=== PATIENT | female | born 1955 ===

== ENCOUNTER 2018-04-02 00:50 | Emergency (ER) | payer OTHER ==
[2018-04-02 01:01] VITALS: BMI 30.9
--- NOTE | 2018-04-02 01:10 | ED PDOC ---
Arrival/HPI - General Chief Complaint: Headache Time Seen by Provider: 04/02/18 00:59 Historian: Patient - History of Present Illness Narrative History of Present Illness (Text): 04/02/18 01:06 62 year old female, whose past medical history includes hypertension, diabetes, hypercholesterolemia, Herniorrhaphy, and cholecystectomy, presents to the emergency department with left-sided head pain since yesterday. Patient states that the pain became very severe over the last 5 hours. Patient has had similar symptoms in the past. Patient denies any fever, chills, dizziness, chest pain, shortness of breath, cough, abdominal pain, nausea, vomiting, diarrhea, back pain, neck pain, urinary/bowel changes, or any other complaint. Time/Duration: 24 hours Symptom Onset: Gradual Symptom Course: Unchanged Quality: Pressure Context: Home Past Medical History - Provider Review Nursing Documentation Reviewed: Yes - Infectious Disease Hx of Infectious Diseases: None - Reproductive Menopause: Yes - Cardiac Hx Hypertension: Yes - Pulmonary Hx Respiratory Disorders: No - Neurological Hx Neurological Disorder: No - HEENT Hx HEENT Disorder: No - Renal Hx Renal Disorder: No - Endocrine/Metabolic Hx Diabetes Mellitus Type 2: Yes - Hematological/Oncological Hx Blood Disorders: No - Integumentary Hx Dermatological Disorder: No - Musculoskeletal/Rheumatological Hx Musculoskeletal Disorders: Yes (SHOULDER PAIN) Hx Degenerative Joint Disease: Yes Hx Falls: No Hx Osteoarthritis: Yes - Gastrointestinal Hx Gall Bladder Disease: Yes - Genitourinary/Gynecological Hx Genitourinary Disorders: No - Psychiatric Hx Psychophysiologic Disorder: No Hx Substance Use: No - Surgical History Hx Cholecystectomy: Yes - Anesthesia Hx Anesthesia: Yes Hx Anesthesia Reactions: No Hx Malignant Hyperthermia: No Family/Social History - Physician Review Nursing Documentation Reviewed: Yes Family/Social History: No Known Family HX Smoking Status: Never Smoked Hx Alcohol Use: No Hx Substance Use: No Allergies/Home Meds Allergies/Adverse Reactions: Allergies No Known Allergies Allergy (Verified 04/02/18 01:01) Home Medications: Home Meds Medication Instructions Recorded Confirmed Atenolol [Tenormin] 25 mg PO DAILY 05/15/17 04/02/18 Pantoprazole [Protonix] 40 mg PO DAILY 05/15/17 04/02/18 Simvastatin 20 mg PO HS 05/15/17 04/02/18 metFORMIN [glucOPHAGE] 500 mg PO BID 05/15/17 04/02/18 Review of Systems - Physician Review All systems were reviewed & negative as marked: Yes - Review of Systems Constitutional: Normal. absent: Fevers, Night Sweats Eyes: Normal ENT: Normal Respiratory: Normal. absent: SOB, Cough Cardiovascular: Normal. absent: Chest Pain Gastrointestinal: Normal. absent: Abdominal Pain, Diarrhea, Nausea, Vomiting Genitourinary Female: Normal. absent: Urine Output Changes Musculoskeletal: Normal. absent: Back Pain, Neck Pain Skin: Normal Neurological: Headache (localized to left). absent: Dizziness Endocrine: Normal Hemo/Lymphatic: Normal Psychiatric: Normal Physical Exam Vital Signs Reviewed: Yes Vital Signs Temp Pulse Resp BP Pulse Ox 04/02/18 04:03 98.0 F 68 17 148/72 99 04/02/18 03:06 57 L 17 158/61 H 98 04/02/18 01:01 98 F 61 20 166/99 H 99 Temperature: Afebrile Blood Pressure: Hypertensive Pulse: Regular Respiratory Rate: Normal Appearance: Positive for: Well-Appearing, Non-Toxic, Comfortable Pain Distress: None Mental Status: Positive for: Alert and Oriented X 3 - Systems Exam Head: Present: Atraumatic, Normocephalic Pupils: Present: PERRL Extroacular Muscles: Present: EOMI Conjunctiva: Present: Normal Mouth: Present: Moist Mucous Membranes Neck: Present: Normal Range of Motion Respiratory/Chest: Present: Clear to Auscultation, Good Air Exchange. No: Respiratory Distress, Accessory Muscle Use Cardiovascular: Present: Regular Rate and Rhythm, Normal S1, S2. No: Murmurs Abdomen: No: Tenderness, Distention, Peritoneal Signs Back: Present: Normal Inspection Upper Extremity: Present: Normal Inspection. No: Cyanosis, Edema Lower Extremity: Present: Normal Inspection. No: Edema Neurological: Present: GCS=15, CN II-XII Intact, Speech Normal Skin: Present: Warm, Dry, Normal Color. No: Rashes Psychiatric: Present: Alert, Oriented x 3, Normal Insight, Normal Concentration Medical Decision Making ED Course and Treatment: 04/02/18 01:14 Impression: 62 year old female presents with left-sided headache. Plan: -- Reglan -- CT head -- Reassess and disposition Prior Visits: Notes and results from previous visits were reviewed. Progress Notes: 04/02/18 03:04 CT Head Without Intravenous Contrast EXAM DATE/TIME: 04/02/2018 1:06 AM CLINICAL HISTORY: 62 years old, female; Pain; Headache; Headache not specified; Additional info: GUERRIER TECHNIQUE: Axial computed tomography images of the head/brain without intravenous contrast. All CT scans at this facility use at least one of these dose optimization techniques: automated exposure control; mA and/or kV adjustment per patient size (includes targeted exams where dose is matched to clinical indication); or iterative reconstruction. COMPARISON: No relevant prior studies available. FINDINGS: Brain:No acute intra or extra-axial hemorrhage. No mass or midline shift. Clear sinuses. No calvarial fracture. IMPRESSION: No intracranial hemorrhage - Lab Interpretations Lab Results: 04/02/18 01:09 04/02/18 01:09 Lab Results 04/02/18 01:09: Sodium 141, Potassium 3.8, Chloride 104, Carbon Dioxide 25, Anion Gap 15, BUN 18, Creatinine 0.9, Est GFR ( Amer) > 60, Est GFR (Non- Af Amer) > 60, Random Glucose 192 H, Calcium 8.9, Magnesium 1.6 L, Total Bilirubin 0.3, AST 22, ALT 27, Alkaline Phosphatase 60, Lactate Dehydrogenase 587, Total Creatine Kinase 110, Troponin I 0.02, Total Protein 7.5, Albumin 4.4 , Globulin 3.1, Albumin/Globulin Ratio 1.4 04/02/18 01:09: WBC 5.8, RBC 3.91, Hgb 11.3 L, Hct 33.3 L, MCV 85.2, MCH 28.9, MCHC 33.9, RDW 13.7, Plt Count 192, MPV 11.3 H, Gran % 56.2, Lymph % (Auto) 36.4 H, Aiken % (Auto) 6.0, Eos % (Auto) 1.2 L, Baso % (Auto) 0.2, Gran # 3.25, Lymph # (Auto) 2.1, Aiken # (Auto) 0.4, Eos # (Auto) 0.1, Baso # (Auto) 0.01 - RAD Interpretation Radiology Orders: 04/02/18 01:06 HEAD W/O CONTRAST [CT] Stat - EKG Interpretation EKG Interpretation (Text): 04/02/18 06:25 sinus rate 59 nssts changes - Medication Orders Current Medication Orders: Discontinued Medications Ketorolac Tromethamine (Toradol) 15 mg IVP ONCE ONE Stop: 04/02/18 02:20 Last Admin: 04/02/18 02:58 Dose: 15 mg MAR Pain Assessment Document 04/02/18 02:58 IT (Rec: 04/02/18 02:58 IT [facility] [id number]) Pain Reassessment Is this a pain reassessment? No Sleep Is patient sleeping during reassessment? No Presence of Pain Presence of Pain Yes Pain Scale Used Pain Scale Used Numeric Location Left, Right or Bilateral Bilateral IVP Administration Document 04/02/18 02:58 IT (Rec: 04/02/18 02:58 IT [facility] [id number]) Charges for Administration # of IVP Administrations 1 Metoclopramide HCl (Reglan) 10 mg IVP ONCE ONE Stop: 04/02/18 01:07 Last Admin: 04/02/18 01:23 Dose: 10 mg IVP Administration Document 04/02/18 01:23 IT (Rec: 04/02/18 01:23 IT [facility] [id number]) Charges for Administration # of IVP Administrations 1 - Scribe Statement The provider has reviewed the documentation as recorded by the Blue Renee Provider Scribe Attestation: All medical record entries made by the Scribe were at my direction and personally dictated by me. I have reviewed the chart and agree that the record accurately reflects my personal performance of the history, physical exam, medical decision making, and the department course for this patient. I have also personally directed, reviewed, and agree with the discharge instructions and disposition. Disposition/Present on Arrival - Present on Arrival Any Indicators Present on Arrival: No History of DVT/PE: No History of Uncontrolled Diabetes: No Urinary Catheter: No History of Decub. Ulcer: No History Surgical Site Infection Following: None - Disposition Have Diagnosis and Disposition been Completed?: Yes Diagnosis: Headache Disposition: HOME/ ROUTINE Disposition Time: 05:00 Condition: IMPROVED Discharge Instructions (ExitCare): Tension Headache, Headache, Adult Prescriptions: Acetaminophen/Butalbital/Caf [Fioricet] 1 tab PO QID PRN #8 tab PRN Reason: Headache Referrals: Ray Cheng MD, PhD [Primary Care Provider] - Follow up with primary Forms: [facility] 911 (Bengali)
[2018-04-02 01:51] LABS: ALB/GLOB RATIO 1.4 (1.1-1.8); ALBUMIN 4.4 g/dL (3.0-4.8); CALCIUM 8.9 mg/dL (8.4-10.5); GFR NON-AFRICAN AMERICAN > 60
[2018-04-02 01:53] LABS: BASO # 0.01 K/mm3 (0.0-2.0); BASO % 0.2 % (0.0-3.0); EOS # 0.1 (0.0-0.7); EOS % 1.2 % (1.5-5.0); GRAN # 3.25 (1.4-6.5); GRAN % 56.2 % (50.0-68.0); HEMOGLOBIN 11.3 g/dL (12.0-16.0); LYMPH # 2.1 (1.2-3.4); LYMPH % 36.4 % (22.0-35.0); MEAN CELL VOLUME 85.2 fl (80.0-105.0); MEAN CORPUSCULAR HEMOGLOBIN 28.9 pg (25.0-35.0); MEAN CORPUSCULAR HGB CONC 33.9 g/dl (31.0-37.0); MEAN PLATELET VOLUME 11.3 fl (7.0-11.0); MONO # 0.4 (0.1-0.6); RBC 3.91 10^6/uL (3.5-6.1); RED CELL DISTRIBUTION WIDTH 13.7 % (11.5-14.5); WHITE BLOOD COUNT 5.8 10^3/ul (4.5-11.0)
[2018-04-02 02:02] LABS: TROPONIN I 0.02 ng/mL
[2018-04-02 02:56] LABS: ALT/SGPT 27 U/L (7-56); AST/SGOT 22 U/L (14-36); BLOOD UREA NITROGEN 18 mg/dL (7-21)
[2018-04-02 03:07] VITALS: RESP 17
[2018-04-02 04:03] VITALS: BP 148/72; PULSE 68; TEMP 98; O2SAT 99
--- NOTE | 2018-04-02 09:21 | CT ---
Date of service: 04/02/2018 PROCEDURE: CT HEAD WITHOUT CONTRAST. HISTORY: ayala COMPARISON: None available. TECHNIQUE: Axial computed tomography images were obtained through the head/brain without intravenous contrast. Radiation dose: Total exam DLP = 684 mGy-cm. This CT exam was performed using one or more of the following dose reduction techniques: Automated exposure control, adjustment of the mA and/or kV according to patient size, and/or use of iterative reconstruction technique. FINDINGS: HEMORRHAGE: No intracranial hemorrhage. BRAIN: No mass effect or edema. No atrophy or chronic microvascular ischemic changes. VENTRICLES: Unremarkable. No hydrocephalus. CALVARIUM: Unremarkable. PARANASAL SINUSES: Unremarkable as visualized. No significant inflammatory changes. MASTOID AIR CELLS: Unremarkable as visualized. No inflammatory changes. OTHER FINDINGS: The report concurs with the preliminary [facility] report IMPRESSION: No acute findings
--- NOTE | 2018-04-02 09:41 | CARD ---
APPROVED REPORT Date of service: 04/02/2018 EKG Measurement Heart [id number] <Conclusion> Sinus bradycardia with 1st degree AV block Otherwise normal ECG
== END 2018-04-02 04:03 | disposition home or self-care (01) ==
LOC: ED 00:50
DX: R51 Headache (principal); E11.9 Type 2 diabetes mellitus without complications; E78.00 Pure hypercholesterolemia, unspecified; I10 Essential (primary) hypertension
CPT/HCPCS: 70450; 80053; 82550; 83615; 83735; 84484; 85025; 93005; 96374; 96375; 99285; J1885; J2765

== ENCOUNTER 2018-07-14 19:19 | Observation (INO) | payer OTHER ==
[2018-07-14 19:27] VITALS: BMI 31.4
--- NOTE | 2018-07-14 19:34 | ED PDOC ---
Arrival/HPI - General Chief Complaint: Cough, Cold, Congestion Historian: Patient - History of Present Illness Narrative History of Present Illness (Text): 07/14/18 19:32 62 y/o female, pmh including htn/hld/dm, nkda, c/o runny nose and coughing x 2 weeks. Pt. has been having runny nose, associated with productive coughing and chest pain with occasional shortness of breath, no night sweat, no weight loss, no fever or chills, worsened for the past few days, no recent traveling, no palpitation, no night sweat, no other medical or psychological complaints. Past Medical History - Provider Review Nursing Documentation Reviewed: Yes - Infectious Disease Hx of Infectious Diseases: None - Cardiac Hx Hypertension: Yes - Pulmonary Hx Respiratory Disorders: No - Neurological Hx Neurological Disorder: No - HEENT Hx HEENT Disorder: No - Renal Hx Renal Disorder: No - Endocrine/Metabolic Hx Diabetes Mellitus Type 2: Yes - Hematological/Oncological Hx Blood Disorders: No - Integumentary Hx Dermatological Disorder: No - Musculoskeletal/Rheumatological Hx Musculoskeletal Disorders: Yes (SHOULDER PAIN) Hx Degenerative Joint Disease: Yes Hx Falls: No Hx Osteoarthritis: Yes - Gastrointestinal Hx Gall Bladder Disease: Yes - Genitourinary/Gynecological Hx Genitourinary Disorders: No - Psychiatric Hx Psychophysiologic Disorder: No Hx Substance Use: No - Surgical History Hx Cholecystectomy: Yes - Anesthesia Hx Anesthesia: Yes Hx Anesthesia Reactions: No Hx Malignant Hyperthermia: No Family/Social History - Physician Review Nursing Documentation Reviewed: Yes Family/Social History: Unknown Family HX Smoking Status: Never Smoked Hx Alcohol Use: No Hx Substance Use: No Allergies/Home Meds Allergies/Adverse Reactions: Allergies No Known Allergies Allergy (Verified 04/02/18 01:01) Home Medications: Home Meds Medication Instructions Recorded Confirmed Atenolol [Tenormin] 25 mg PO DAILY 05/15/17 04/02/18 Pantoprazole [Protonix] 40 mg PO DAILY 05/15/17 04/02/18 Simvastatin 20 mg PO HS 05/15/17 04/02/18 metFORMIN [glucOPHAGE] 500 mg PO BID 05/15/17 04/02/18 Review of Systems - Review of Systems Constitutional: absent: Fatigue, Fevers Eyes: absent: Vision Changes ENT: Rhinorrhea. absent: Hearing Changes Respiratory: SOB, Cough, Sputum. absent: Wheezing Cardiovascular: Chest Pain Gastrointestinal: absent: Abdominal Pain, Diarrhea, Nausea, Vomiting Musculoskeletal: absent: Arthralgias, Back Pain Skin: absent: Rash, Pruritis Neurological: absent: Headache Psychiatric: absent: Anxiety, Depression, Suicidal Ideation Physical Exam Vital Signs Reviewed: Yes Temperature: Afebrile Blood Pressure: Hypertensive Pulse: Regular Respiratory Rate: Normal Appearance: Positive for: Well-Appearing, Non-Toxic, Comfortable Pain Distress: Mild Mental Status: Positive for: Alert and Oriented X 3 - Systems Exam Head: Present: Atraumatic, Normocephalic Pupils: Present: PERRL Extroacular Muscles: Present: EOMI Conjunctiva: Present: Normal Mouth: Present: Moist Mucous Membranes Pharnyx: No: ERYTHEMA, EXUDATE, TONSILS ENLARGED Nose (External): Present: Atraumatic. No: Abrasion, Contusion, Laceration Nose (Internal): Present: Normal Inspection, No Active Bleeding, Rhinorrhea. No: Septal Hematoma, Epistaxis Neck: Present: Normal Range of Motion Respiratory/Chest: Present: Wheezes, Rales, Rhonchi. No: Respiratory Distress, Accessory Muscle Use, Decreased Breath Sounds, Retracting, Tachypneic, Tender to Palpation Cardiovascular: Present: Regular Rate and Rhythm, Normal S1, S2, Other (no pedal edema). No: Murmurs Abdomen: No: Tenderness, Distention, Peritoneal Signs, Rebound, Guarding Back: Present: Normal Inspection Upper Extremity: Present: Normal Inspection, Normal ROM, Neurovascularly Intact, Capillary Refill < 2s. No: Cyanosis, Edema, Deformity Lower Extremity: Present: Normal Inspection, Normal ROM, Neurovascularly Intact, Capillary Refill < 2 s. No: Edema, Deformity Neurological: Present: GCS=15, CN II-XII Intact, Speech Normal, Motor Func Grossly Intact, Gait Normal, Memory Normal Skin: Present: Warm, Dry, Normal Color. No: Rashes Psychiatric: Present: Alert, Oriented x 3, Normal Insight, Normal Concentration Medical Decision Making ED Course and Treatment: 07/14/18 19:35 -labs -cxr -observe and reassess 07/14/18 21:12 -Chest xray No evidence of acute pulmonary pathology.Left humeral prosthesis -Labs show no acute findings except wbc 3.9 -BNP 454 (very mildly elevated), not appear to be CHF -Lactic acid 2.5, will repeat -Mg 1.4 (mgsulfate 2gm ordered). -Pt. has excessive cough, CTA ordered 07/14/18 22:45 -CTA: A pulmonary embolism is not identified. Respiratory motion limits evaluation. No infiltrate or pleural effusion. Left shoulder prosthesis. -Pt. admits chest pain, Trop ordered and she would need trending to r/o ACS, duoneb/solumedrol and aspirin ordered -I discussed all labs and radiology results discussed with the family and the patient, agreed to be admitted for observation. 07/14/18 23:14 -Paging the medicine oncall Dr. Hammond. 07/14/18 23:22 -Oxygen ordered -Trop: is negative first set -EKG: Sinus Bradycardia @ 50 BPM, no St elevation or depression, no T wave inversion. -Lactic acidosis can be cause by metformin and ischemia which she has no fever and no elevation of wbc, non tachy/tachypnea, unlikely sepsis but she would need work up so she would need to be admitted. -I spoke to Dr. Hammond about this case, request to have Dr. Suarez and Dr. Schroeder on routine consult, request me to order troponin set until tomorrow morning and she would follow up these results and continue trending. - RAD Interpretation Radiology Orders: CT Chest: EXAM: CTA Chest with Intravenous Contrast for Pulmonary Embolism CLINICAL HISTORY: SOB AND COUGH TECHNIQUE: Axial CTA images of the chest with intravenous contrast using a pulmonary embolism protocol. Reconstructed images were created and reviewed. 443.00 mGy-cm CONTRAST: With; OMNI 350 100 ml was administered without incident. COMPARISON: None provided. FINDINGS: PULMONARY ARTERIES A pulmonary embolism is not identified. AORTA There is no evidence for aneurysm or dissection of the thoracic aorta. LUNGS No infiltrate or pleural effusion. PLEURAL SPACES No pneumothorax evident. No pleural effusions. HEART Normal heart size. No significant pericardial effusion. LYMPH NODES No lymphadenopathy is evident. BONES Left shoulder prosthesis. UPPER ABDOMEN Images of the upper abdomen are unremarkable. MISCELLANEOUS: Respiratory motion limits evaluation. IMPRESSION: 1. A pulmonary embolism is not identified. 2. Respiratory motion limits evaluation. 3. No infiltrate or pleural effusion. 4. Left shoulder prosthesis. Electronically signed on Jul 14, 2018 10:33:31 PM EST by: Joss Scott M.D., Certified by [facility] Chest xray: CLINICAL HISTORY: Cough. COMMENTS: PA and lateral views of chest reveal no evidence of active pleural or pulmonary parenchymal abnormality. The cardiac silhouette is within limits of normal. The mediastinum and pulmonary vessels appear normal. The bony structures are unremarkable. IMPRESSION: No evidence of acute pulmonary pathology.Left humeral prosthesis Thank you for your kind referral of this patient. Electronically signed on Jul 14, 2018 9:03:41 PM EST by: LISHA SHAH MD, CERTIFIED BY [facility] Supervisor Cellars: Radiologist - PA / [employer] / Resident Statement / has reviewed & agrees with the documentation as recorded. Disposition/Present on Arrival - Present on Arrival Any Indicators Present on Arrival: No History of DVT/PE: No History of Uncontrolled Diabetes: No Urinary Catheter: No History of Decub. Ulcer: No History Surgical Site Infection Following: None - Disposition Have Diagnosis and Disposition been Completed?: Yes Diagnosis: Hypomagnesemia, Chest pain, Shortness of breath, Lactic acidosis Disposition: HOSPITALIZED Disposition Time: 22:55 Patient Plan: Admission, Observation, Telemetry Patient Problems: Current Active Problems Problem Status Onset Chest pain Acute Hypomagnesemia Acute Lactic acidosis Acute Shortness of breath Acute Condition: GUARDED
[2018-07-14 20:05] LABS: BASO # 0.01 K/mm3 (0.0-2.0); BASO % 0.3 % (0.0-3.0); EOS % 0.8 % (1.5-5.0); GRAN # 1.8 (1.4-6.5); GRAN % 46.1 % (50.0-68.0); LYMPH # 1.6 (1.2-3.4); LYMPH % 41.5 % (22.0-35.0); MEAN CELL VOLUME 85.3 fl (80.0-105.0); MEAN CORPUSCULAR HEMOGLOBIN 28.9 pg (25.0-35.0); MEAN CORPUSCULAR HGB CONC 33.8 g/dl (31.0-37.0); MEAN PLATELET VOLUME 10.8 fl (7.0-11.0); MONO # 0.4 (0.1-0.6); MONO % 11.3 % (1.0-6.0); RBC 3.81 10^6/uL (3.5-6.1); RED CELL DISTRIBUTION WIDTH 13.6 % (11.5-14.5); WHITE BLOOD COUNT 3.9 10^3/uL (4.5-11.0)
[2018-07-14 20:06] LABS: VENOUS BLOOD GAS BASE EXCESS 0.1 mmol/L (0.0-2.0); VENOUS BLOOD GAS PO2 64 mm/Hg (30-55); VENOUS BLOOD PH 7.41 (7.32-7.43)
[2018-07-14 20:18] LABS: ALB/GLOB RATIO 1.4 (1.1-1.8); ALBUMIN 4.2 g/dL (3.0-4.8); ALT/SGPT 26 U/L (7-56); AST/SGOT 27 U/L (14-36); BLOOD UREA NITROGEN 12 mg/dL (7-21); CALCIUM 8.7 mg/dL (8.4-10.5); GFR NON-AFRICAN AMERICAN > 60
[2018-07-14 20:25] LABS: B-TYPE NATRIURETIC PEPTIDE 454 pg/mL (0-450)
[2018-07-14] MEDS ORDERED: Magnesium Sulfate 2 gm/50 ml 2 GM/50 ML BAG IVPB ONE (20:44)
[2018-07-14] MEDS ORDERED: Iohexol 350 MG/100 ML VIAL ONE (21:18)
[2018-07-14] MEDS ORDERED: Albuterol-Ipratrop 3 mg / 0.5 (3 ml) UD IH STA ×2 (22:44→22:51)
[2018-07-15 00:46] LABS: VENOUS BLOOD GAS BASE EXCESS -0.3 mmol/L (0.0-2.0); VENOUS BLOOD GAS PO2 32 mm/Hg (30-55); VENOUS BLOOD PH 7.36 (7.32-7.43)
[2018-07-15] MEDS ORDERED: Dextrose 50% SYRINGE Inj (50 ml) IV PRN (08:16)
[2018-07-15] MEDS ORDERED: Insulin Regular 1 UNITS/0.01 ML ML SC STA (08:40)
--- NOTE | 2018-07-15 09:13 | RAD ---
Date of service: 07/14/2018 HISTORY: cough x 2 weeks COMPARISON: No prior. TECHNIQUE: Chest PA and lateral FINDINGS: LUNGS: No active pulmonary disease. PLEURA: No significant pleural effusion identified. No pneumothorax apparent. CARDIOVASCULAR: No aortic atherosclerotic calcification present. Normal cardiac size. No pulmonary vascular congestion. OSSEOUS STRUCTURES: No significant abnormalities. VISUALIZED UPPER ABDOMEN: Normal. OTHER FINDINGS: None. IMPRESSION: No active disease.
--- NOTE | 2018-07-15 09:25 | CT ---
Date of service: 07/14/2018 PROCEDURE: CT Chest with contrast (Pulmonary Angiogram) HISTORY: Cough, shortness of breath. COMPARISON: None available. TECHNIQUE: Axial computed tomography images were obtained of the chest in the pulmonary arterial phase of enhancement. Coronal and sagittal reformatted images were created and reviewed. Intravenous contrast dose: 100 cc Omnipaque 350. Mean Hounsfield value in the main pulmonary artery: 389.05 Radiation dose: Total exam DLP = 443.13 mGy-cm. This CT exam was performed using one or more of the following dose reduction techniques: Automated exposure control, adjustment of the mA and/or kV according to patient size, and/or use of iterative reconstruction technique. FINDINGS: PULMONARY ARTERIES: Unremarkable. No pulmonary embolism. AORTA: No acute findings. No thoracic aortic aneurysm. No atherosclerotic calcification or mural plaque present. LUNGS: Unremarkable. No nodule, mass or pulmonary consolidation. PLEURAL SPACES: Unremarkable. No effusion or pneumothorax. HEART: Unremarkable. No cardiomegaly. No significant pericardial effusion. LYMPH NODES: No lymphadenopathy. BONES, CHEST WALL: Unremarkable. No fracture or destructive lesion OTHER FINDINGS: Unremarkable. IMPRESSION: Unremarkable CT pulmonary angiogram. No pulmonary embolus. No acute findings related to/ accounting for the clinical presentation. Additional benign and/or incidental findings described above. Concordant results (preliminary interpretation) provided by [employer]. Procedure Completed: 21:50. Preliminary Report: Dictated and Authenticated: 22:33. Final Interpretation: 09:21. July 15, 2018
--- NOTE | 2018-07-15 09:31 | CON ---
DATE: 07/15/2018 CARDIOLOGY CONSULTATION REASON FOR CONSULTATION: Cardiac evaluation, cold, cough, congestion and chest pain. BRIEF CLINICAL HISTORY: A 62-year-old female with past medical history significant for hypertension more than 30 years, diabetes 4 years, hyperlipidemia complained of running nose, cough for 2 weeks and just started hurting her coughing. Denies any chest pain or dyspnea on exertion, chest pain prior to this condition or cold episode. PAST MEDICAL HISTORY: The past history significant for hypertension more than 25 years, diabetes 4 years and hyperlipidemia. SOCIAL HISTORY: Denies any smoking. Denies any history of alcohol abuse. PAST SURGICAL HISTORY: Significant for left shoulder surgery 2 years ago. CURRENT MEDICATIONS: The patient is taking metformin 500 mg p.o. b.i.d., simvastatin 200 mg daily, Protonix 40 mg daily, atenolol 25 mg daily, acetaminophen and butalbital that is combination of Fioricet 1 tablet every p.r.n. ALLERGIES: NO KNOWN DRUG ALLERGY. REVIEW OF SYSTEMS: As per HPI. PHYSICAL EXAMINATION: As follows, GENERAL: Height of the patient is 5 feet 4 inches. Weight of the patient 184 pounds. Body mass index 31.6 kg/m2. VITAL SIGNS: Temperature afebrile, heart rate 66 and blood pressure 142/82. HEENT: PERRLA. Extraocular muscles intact. NECK: Supple. No carotid bruit or thyromegaly CHEST: Clear to auscultation. HEART: S1 and S2 regular. ABDOMEN: Soft. EXTREMITIES: Clubbing and cyanosis negative. LABORATORY DATA: EKG shows normal sinus rhythm. No acute ST-T changes noted. Blood workup, WBC 3.9, hemoglobin 11, hematocrit 32.5 and platelet count 180. Chemistry shows s odium 130, potassium 3.6, chloride 105, carbon dioxide 25, anion gap of 13, BUN 12, creatinine 0.7, troponin 0.01 and the repeat troponin 0.03. BNP 4554. IMPRESSION AND PLAN: A 62-year-old female with past medical history of diabetes, hypertension more than 24 years ago, hyperlipidemia admitted for cold, congestion and coughing. The chest pain though is a typical and tenderness which gives multiple disorder coronary artery disease, suggest echo stress thallium. First, we will look at other troponin, troponin remains flat all 3. Then, we will schedule stress test tomorrow. Also, get lipid profile, TSH, hemoglobin A1C. Resume previous medication. We will follow with you. Thank you Dr. Hammond for providing us the opportunity in taking care of the patient, Jes Curtis. We will also start some antibiotic covered as for these symptoms of cold and congestion. The patient got 1 dose of p.o. yesterday, we will give a 250 from daily Zithromax. We will repeat chest x-ray today. Mirna Schroeder MD
[2018-07-15] MEDS: Enoxaparin 40 mg Syringe SC SCH (10:10)
[2018-07-15] MEDS: Apap-Butalbital-Caffeine 325-50-40mg Tab PO SCH ×3 (10:11→17:36)
[2018-07-15] MEDS: Insulin Regular 1 UNITS/0.01 ML ML SC SCH ×4 (12:11→21:43)
[2018-07-15 15:18] LABS: TROPONIN I < 0.01 ng/mL
--- NOTE | 2018-07-15 17:11 | HP ---
DATE OF EXAM: 07/15/2018 The patient was seen and examined at bedside on 07/15/2018. CHIEF COMPLAINT: Cough, cold, congestion. HISTORY OF PRESENT ILLNESS: Jes Clarke is a 62-year-old female with past medical history of hypertension, hypercholesterolemia, diabetes mellitus, came to [facility] Emergency Room complaining of runny nose, coughing from 2 weeks. The patient has been having runny nose associated with productive cough and chest pain with occasional shortness of breath. No night sweat. No weight loss. No fever. No chills, but cough is worsening with shortness of breath. No recent travel or palpitation. No hematuria or hematochezia. PAST MEDICAL HISTORY: Hypertension, diabetes mellitus, shoulder pain, degenerative joint disease, osteoarthritis, cholecystectomy. FAMILY HISTORY: Father and mother, noncontributory. HABITS: Never smoked. No drugs. No ethanol. ALLERGIES: THE PATIENT IS NOT ALLERGIC WITH ANY MEDICATIONS. HOME MEDICATIONS: Tenormin, Protonix, simvastatin, Glucophage. REVIEW OF SYSTEMS: The patient was seen and examined at bedside, looking comfortable. No fatigue, fever. No vision changes, but having rhinorrhea. No hearing loss, no changes, having shortness of breath, cough, sputum production, wheezing, having chest pain. No abdominal pain. No dysuria. No nausea, vomiting. No arthralgia, back pain. No pruritus. No headache. No anxiety, depression, suicidal ideation. PHYSICAL EXAMINATION: VITAL SIGNS: Temperature 97.7, pulse 56, blood pressure 176/90, respiratory rate 18. HEENT: Head: Normocephalic, atraumatic. Eyes: PERRLA. Extraocular muscles intact. Conjunctivae clear. Nose patent. NECK: Supple. No carotid bruits, JVD or thyromegaly. CHEST: Bilaterally symmetrical. HEART: S1 and S2 positive. LUNGS: Clear to auscultation. ABDOMEN: Soft. Bowel sounds positive. No organomegaly. EXTREMITIES: No edema. No cyanosis. NEUROLOGIC: The patient is awake, alert, moving all 4 extremities. No focal deficits. LABORATORY DATA: White blood cells 3.9, hemoglobin 11.0, hematocrit 32.5, platelets 180. Sodium 139, potassium 3.6, BUN 12, creatinine 0.7, magnesium 1.7. BNP 454. ASSESSMENT AND PLAN: Jes Clarke is a 62-year-old lady with leukopenia, anemia, hypomagnesemia, influenza A and B negative, came with cough, shortness of breath, history of hypertension more than 25 years, diabetes mellitus more than 4 years, hypercholesterolemia. Has cold, congestion and coughing. According to Cardiology, chest pain is atypical and which gives multiple disorders, rule out coronary artery disease. Dr. Schroeder suggested echocardiogram and stress thallium, troponin x3 ordered, and he scheduled stress test. Rule out bronchitis, gastrointestinal and deep venous thrombosis prophylaxis. Discussion done with the patient and the patient's family. Repeat labs. We will follow up. Ludivina Hammond MD (Delete this signature block when dictator is a preceptor.) [facility]
--- NOTE | 2018-07-15 18:47 | CARD ---
APPROVED REPORT Date of service: 07/14/2018 EKG Measurement Heart [id number] [id number] [id number] <Conclusion> Sinus bradycardia Otherwise normal ECG
--- NOTE | 2018-07-15 20:15 | CON ---
PULMONARY CRITICAL CARE CONSULT DATE OF CONSULTATION: 07/15/2018 REFERRING PHYSICIAN: Ludivina Hammond MD REASON FOR CONSULTATION: Cough, shortness of breath, may have sleep apnea. HISTORY OF PRESENT ILLNESS: This is a 62-year-old female with past medical history significant for diabetes, hypertension, hyperlipidemia, comes into emergency room with rhinitis, cough, shortness of breath. Seen by Cardiology. Cardiac workup is in progress. Admits to have loud snoring, daytime sleepiness and tiredness. No hemoptysis, hematemesis, hematuria or diarrhea reported. PAST MEDICAL HISTORY: As per history of present illness. Also has a history of osteoarthritis. FAMILY HISTORY: No significant cardiopulmonary disease reported. SOCIAL HISTORY: Never smoked. Denied any alcohol use. MEDICATIONS: She is on Cozaar 50 mg daily, Ecotrin 81 mg daily, Fioricet 1 tablet three times a day, metformin 500 mg two times a day, insulin coverage, Lipitor 20 mg daily, Lovenox 40 mg subcu daily, Protonix 40 mg daily, Tenormin 25 mg daily, Zithromax 250 mg daily. ALLERGIES: NONE KNOWN. REVIEW OF SYSTEMS: No headache. She has some rhinitis, cough, and shortness of breath. No chest pain. No nausea, no vomiting, no diarrhea. No leg pain or leg swelling. PHYSICAL EXAMINATION: GENERAL: No acute distress. VITAL SIGNS: Temp is 98, heart rate is 56, respiratory rate is 20, blood pressure 149/76, pulse of 98% on nasal cannula. HEENT: Moist mucous membranes. Crowded airway. Mallampati score is 4. NECK: Supple. No JVD. LUNGS: Have a few scattered rhonchi. HEART: S1 and S2. ABDOMEN: Soft, nontender, no organomegaly. EXTREMITIES: No edema. NEUROLOGIC: Awake and alert. Follows simple commands. LABORATORY DATA: Hemoglobin 11.0, hematocrit 32.5, WBC 3.9, platelet count is 180,000. Sodium 139, potassium 3.6, chloride 105, bicarbonate 25, BUN 12, creatinine 0.7, glucose 107, calcium 8.7, magnesium 1.4. AST 27, ALT 26, alk phos is 67. ProBNP 454. Albumin 4.12. Globulin 3.0. CAT scan of the chest done and shows no infiltrate. CTA was done, which shows no pulmonary embolism. IMPRESSION AND PLAN: May have sinusitis with bronchitis, probably triggered by viral syndrome. Has diabetes and hypertension. May have sleep apnea syndrome. Agree with Dr. Hammond with the present management. We will add doxycycline and also add a short course of prednisone. Cardiac workup in progress. Outpatient sleep study and PFT. Thank you and we will follow with you. Mirna Suarez MD
[2018-07-16] MEDS: Pantoprazole 40 mg EC Tab PO SCH (05:00)
[2018-07-16 07:08] LABS: GRAN # 4.53 (1.4-6.5); GRAN % 78.4 % (50.0-68.0); HEMOGLOBIN 11.3 g/dL (12.0-16.0); LYMPH # 0.8 (1.2-3.4); LYMPH % 13.8 % (22.0-35.0); MEAN CELL VOLUME 85.6 fl (80.0-105.0); MEAN CORPUSCULAR HEMOGLOBIN 28.5 pg (25.0-35.0); MEAN CORPUSCULAR HGB CONC 33.3 g/dl (31.0-37.0); MEAN PLATELET VOLUME 11.2 fl (7.0-11.0); MONO # 0.5 (0.1-0.6); MONO % 7.8 % (1.0-6.0); RBC 3.96 10^6/uL (3.5-6.1); RED CELL DISTRIBUTION WIDTH 13.7 % (11.5-14.5); WHITE BLOOD COUNT 5.8 10^3/uL (4.5-11.0)
--- NOTE | 2018-07-16 07:13 | CP.PCM.PN ---
Subjective - Date & Time of Evaluation Date of Evaluation: 07/16/18 Time of Evaluation: 06:20 - Subjective Subjective: Awake, sitting at side of bed, no distress Reason for consultation and follow up: Cardiac evaluation of shortness of breath, chest discomfort from coughing, colds and coughing for the past 2 weeks Seen and examined by me and Dr. Schroeder Objective - Vital Signs/Intake and Output Vital Signs (last 24 hours): Temp Pulse Resp BP Pulse Ox 98.8 F 57 L 20 126/88 97 07/16/18 05:59 07/16/18 06:00 07/16/18 05:59 07/16/18 05:59 07/16/18 05:59 Intake and Output: 07/16/18 07/16/18 06:59 18:59 Intake Total 1680 Balance 1680 - Medications Medications: Current Medications Acetaminophen/Butalbital/Caffeine (Fioricet) 1 tab PO TID [facility] Last Admin: 07/15/18 17:36 Dose: 1 tab Aspirin (Ecotrin) 81 mg PO DAILY [facility] Last Admin: 07/15/18 10:10 Dose: 81 mg Atorvastatin Calcium (Lipitor) 20 mg PO DIN [facility] Last Admin: 07/15/18 17:36 Dose: 20 mg Azithromycin (Zithromax) 250 mg PO DAILY [facility]; Protocol Stop: 07/18/18 23:59 Last Admin: 07/15/18 10:10 Dose: 250 mg Dextrose (Dextrose 50% Inj) 0 ml IV STAT PRN; Protocol PRN Reason: Hypoglycemia Protocol Doxycycline Hyclate (Doryx) 100 mg PO Q12 [facility]; Protocol Last Admin: 07/15/18 21:11 Dose: 100 mg Enoxaparin Sodium (Lovenox) 40 mg SC DAILY [facility]; Protocol Last Admin: 07/15/18 10:10 Dose: 40 mg Dextrose (Dextrose 5% In Water 1000 Ml) 1,000 mls @ 0 mls/hr IV .Q0M PRN; Protocol PRN Reason: Hypoglycemia Protocol Insulin Human Regular (Humulin R) 0 units SC ACHS [facility]; Protocol Last Admin: 07/15/18 21:43 Dose: Not Given Losartan Potassium (Cozaar) 50 mg PO DAILY [facility] Last Admin: 07/15/18 10:10 Dose: 50 mg Metformin HCl (Glucophage) 500 mg PO BID [facility] Last Admin: 07/15/18 17:36 Dose: 500 mg Pantoprazole Sodium (Protonix Ec Tab) 40 mg PO 0600 [facility] Last Admin: 07/16/18 05:00 Dose: 40 mg Prednisone (Prednisone Tab) 20 mg PO DAILY [facility] Last Admin: 07/15/18 18:35 Dose: 20 mg - Labs Labs: 07/14/18 19:41 07/14/18 19:41 - Constitutional Appears: Non-toxic, No Acute Distress - Head Exam Head Exam: NORMAL INSPECTION, NORMOCEPHALIC - Eye Exam Eye Exam: Normal appearance Pupil Exam: NORMAL ACCOMODATION - ENT Exam ENT Exam: Mucous Membranes Moist, Normal Exam - Respiratory Exam Respiratory Exam: Decreased Breath Sounds, Clear to Ausculation Bilateral, NORMAL BREATHING PATTERN - Cardiovascular Exam Cardiovascular Exam: Bradycardia, +S1, +S2 Additional comments: Telemetry SB 50's - GI/Abdominal Exam GI & Abdominal Exam: Soft, Normal Bowel Sounds - Extremities Exam Extremities Exam: Full ROM, Normal Capillary Refill - Neurological Exam Neurological Exam: Alert, Awake, Oriented x3 - Psychiatric Exam Psychiatric exam: Normal Affect, Normal Mood - Skin Skin Exam: Dry, Normal Color, Warm Assessment and Plan - Assessment and Plan (Free Text) Assessment: A 62 year old female who came in to the ER due to runny nose and coughing x 2 weeks associated with productive coughing and chest pain with occasional shortness of breath. History of hypertension, hyperlipidemia, diabetes. Chest X ray showed no vascular congestion. CT of chest unremarkable result. One troponin 0.03 but otherwise normal. For Echo and stress test today. Pulmonary on consult. Plan: Denies chest pain, no distress For Stress test today For Echo to evaluate LV function Heart rate controlled Blood pressure controlled On ASA 81 mg daily, Lovenox 40 mg daily,Cozaar 50 mg daily Prednisone 20 mg daily, Doryx 100 mg BID, Zithromax 250 mg dailly Continue current treatment Continue current medications Will follow up Plan and treatment discussed with Dr. Schroeder
[2018-07-16 07:32] LABS: LDL CHOLESTEROL 75 mg/dL (0-129)
[2018-07-16 07:58] LABS: ALB/GLOB RATIO 1.3 (1.1-1.8); ALBUMIN 4.3 g/dL (3.0-4.8); ALT/SGPT 30 U/L (7-56); AST/SGOT 29 U/L (14-36); BLOOD UREA NITROGEN 24 mg/dL (7-21); CALCIUM 8.9 mg/dL (8.4-10.5); GFR NON-AFRICAN AMERICAN > 60; HDL CHOLESTEROL 42 mg/dL (29-60)
[2018-07-16] MEDS ORDERED: Aminophylline 25 mg/ml Inj ONE (08:11)
[2018-07-16] MEDS: Insulin Regular 1 UNITS/0.01 ML ML SC SCH ×4 (08:35→22:44)
[2018-07-16] MEDS: Apap-Butalbital-Caffeine 325-50-40mg Tab PO SCH ×3 (11:09→17:37)
[2018-07-16] MEDS: Enoxaparin 40 mg Syringe SC SCH (12:31)
--- NOTE | 2018-07-16 12:35 | PN ---
DATE: 07/16/2018 REFERRING PHYSICIAN: Ludivina Hammond MD SUBJECTIVE: The patient is sitting up in wheelchair. No acute distress. No overnight events reported. The patient does report having cough with a lot of sputum production, having runny nose, denies any chest pain, any shortness of breath. No headache, abdominal pain, nausea, vomiting, diarrhea, leg pain or leg swelling reported. OBJECTIVE: GENERAL: No acute distress. VITAL SIGNS: Blood pressure 126/88, pulse 73, temperature 98.8 and oxygen saturation 97%. HEENT: Moist mucous membranes. Crowded airway. Mallampati score of 4. NECK: Supple. No JVD. LUNGS: Scattered rhonchi bilaterally. CARDIOVASCULAR: S1 and S2 audible. ABDOMEN: Soft and nontender. No distention. No organomegaly. EXTREMITIES: No bilateral lower extremity edema. NEUROLOGIC: Awake, alert and verbal. Follows simple commands. MEDICATIONS: Reviewed. Fioricet one tab three times a day, aspirin 81 mg daily, Lipitor 20 mg at dinner, Zithromax 250 mg daily, dextrose 5% 1000 mL p.r.n., doxycycline 100 mg every 12 hours, Lovenox 40 mg daily, Humulin R sliding scale, Cozaar 50 mg daily, metformin 500 mg twice a day, Protonix 40 mg daily, prednisone 20 mg daily. LABORATORY DATA: Reviewed. WBC 5.8, RBC 3.96, hemoglobin 11.3, hematocrit 33.9, and platelets 214. Sodium 137, potassium 4.3, chloride 103, carbon dioxide 26, anion gap 13, BUN 24, creatinine 0.8. GFR is greater than 60. Random glucose 191, hemoglobin A1c 7. Calcium 8.9, phosphorus 4.1, magnesium 1.7. Total bilirubin 0.3, AST 29, ALT 30, alkaline phosphatase 63, total protein 7.6, albumin 4.3, globulin 3.3, albumin globulin ratio 1.3. Triglycerides 166, cholesterol 148, LDL cholesterol direct 75, HDL cholesterol 42. TSH 0.47. Echocardiogram pending. Stress test report pending. IMPRESSION AND PLAN: May have bronchitis with some sinusitis which may have been triggered by viral syndrome, history of diabetes, hypertension, suspected sleep apnea syndrome. Continue antibiotic therapy, steroids. We will add Tessalon Perles and Singulair for cough and rhinorrhea. Reports for stress test and echocardiogram pending. Gastric prophylaxis, Deep Venous thrombosis prophylaxis. Sleep apnea precaution. Head of bed elevated at 45 degrees. We recommend sleep study and full pulmonary function test as outpatient. This patient was seen and examined with Dr. Suarez. Discussed assessment and plan as described above. Thank you for this consult and we will follow with you. Albert PrudeDALLIN pendleton Mirna Suarez MD [facility]
--- NOTE | 2018-07-16 15:15 | CARD ---
APPROVED REPORT Date of service: 07/16/2018 EXAM: Two-dimensional and M-mode echocardiogram with Doppler and color Doppler. INDICATION Chest Pain 2D DIMENSIONS Left Atrium (2D)3.8 (1.6-4.0cm)IVSd0.8 (0.7-1.1cm) LVDd4.5 (3.9-5.9cm)PWd1.0 (0.7-1.1cm) LVDs2.8 (2.5-4.0cm)FS (%) 37.9 % LVEF (%)68.2 (>50%) M-Mode DIMENSIONS Aortic Root2.20 (2.2-3.7cm)Aortic Cusp Exc.1.70 (1.5-2.0cm) Aortic Valve AoV Peak Bnzpuqbc085.0cm/Paul Peak GR.11mmHg Mitral Valve MV E Vthoorev435.0cm/sMV A Tpfeiaaz086.0cm/sE/A ratio0.8 TDI E/Lateral E'0.0E/Medial E'0.0 Tricuspid Valve TR Peak Xbrbnitj248pf/sRAP [id number] Peak Gr.19mmHg [id number] LEFT VENTRICLE The left ventricle is normal size. There is normal left ventricular wall thickness. The left ventricular function is normal.EF-55-60% There is borderline hypokinesis in the apical anterior wall. Transmitral Doppler flow pattern is Grade III-reversible restrictive diastolic dysfunction. No left ventricle thrombus noted on this study. There is no ventricular septal defect visualized. There is no left ventricular aneurysm. There is no mass noted in the left ventricle. RIGHT VENTRICLE The right ventricle is normal size. There is normal right ventricular wall thickness. The right ventricular systolic function is normal. ATRIA The left atrium size is normal. The right atrium size is normal. The interatrial septum is intact with no evidence for an atrial septal defect. AORTIC VALVE The aortic valve is calcified but opens well. No aortic regurgitation is present. There is no aortic valvular stenosis. There is no aortic valvular vegetation. MITRAL VALVE The mitral valve is thickened but opens well. Mitral regurgitation is moderate, eccentric jet, posteriorly directed. There is no mitral valve stenosis. There is no evidence of mitral valve prolapse. TRICUSPID VALVE The tricuspid valve leaflets are thickened , but open well. There is mild tricuspid regurgitation.RVSP-29 mmof hg. There is no tricuspid valve stenosis. There is no tricuspid valve prolapse or vegetation. PULMONIC VALVE The pulmonic valve is borderline thickened. There is trace pulmonic valvular regurgitation. There is no pulmonic valvular stenosis. GREAT VESSELS The aortic root is normal in size. The ascending aorta is normal in size. The pulmonary artery is normal. The IVC is normal in size and collapses >50% with inspiration. PERICARDIAL EFFUSION There is no pleural effusion. There is no pericardial effusion. <Conclusion> Normal chamber size. EFG-55-60% Mitral regurgitation is moderate, eccentric jet, posteriorly directed. There is mild tricuspid regurgitation.RVSP-29 mmof hg. The IVC is normal in size and collapses >50% with inspiration. There is no pericardial effusion. no thrombus or vegetation noted.
--- NOTE | 2018-07-16 15:34 | PN ---
DATE: 07/16/2018 REASON FOR CONSULTATION AND FOLLOWUP: Cardiac evaluation, shortness of breath, chest discomfort, atypical chest pain. The patient started sleep coughing and sneezing and claims that chest hurts on coughing. This note is in addition to dictated by the nurse practitioner Jenifer Singh. Troponin remains flat 0.01. SUBJECTIVE: This is a 62-year-old female with past medical history of diabetes, hypertension, hyperlipidemia for many years, admitted with cold, congestion, and cough. Chest pain was atypical, still complaining of chest pain on coughing and sneezing. RECOMMENDATIONS: The patient is schedule for a stress test today. We will do this stress test today, further recommendation will be made after the stress test and we will get echo today. We started antibiotic because of the patient's coughing and sneezing. Zithromax 250 mg p.o. after 500 mg dose for followup in 4 days. Further recommendation will be made after the stress test and echo. Thank you Dr. Hammond, for providing us the opportunity in taking care of the patient Jes Gary. Mirna Schroeder MD
--- NOTE | 2018-07-16 16:00 | CARD ---
APPROVED REPORT Date of service: 07/16/2018 Protocol: LEXISCAN Test Type: Lexiscan Sestamibi Stress Test Attending Physician: Dr. Mirna Schroeder Referring Physician: Dr. Ludivina Hammond Test Indications: Chest Pain Height:5 ft 4 in Weight:184lbs Medications: fioricet, aspirin, lipitor, zithromax doryx, lovenox, regular insulin cozaar, glucophage, protonix, prednisone Medical History: 62 year old female with h/o htn, high cholesterol and diabetes Target HR: 158 bpm Resting ECG: normal Resting Heart Rate: 61 bpm Resting Blood Pressure: 124/82mmHg Submaximum (85%): 134 bpm PROCEDURE Pharmacologic stress testing was performed using 0.4mg per 5ml of regadenoson given intravenously over 7-10 seconds. Reversal agent aminophyline 100 mg, given intravenously for Dyspnea. POST EXERCISE Reason for Termination: Protocol completed Target HR: No Max HR: 88 bpm 63% of Maximum Predicted HR: 158 bpm Exercise duration: 03:23 min:sec, 0 Stage Exercise capacity: 1.0METs Max Blood Pressure: 124/82mmHg Blood Pressure response to exercise: normal resting BP - appropriate response Heart Rate response to exercise: appropriate Chest Pain: No, none Angina index: 0 Arrhythmia: No, none ST Change: No, none Deviation: 0 mm TEST SUMMARY [id number]. INFUSIONDOSE 101:000.00.01.093/.0. INFUSIONDOSE 201:[id number]/76.0. INFUSIONDOSE 301:[id number]/76.0. INFUSIONDOSE 400:230.00.01.088/.0. [id number]/.0. INTERPRETATION Stress EKG Conclusion: Negative IV Lexiscan for ischemia and for chest pain, Nuclear scna to follow. Signed by Mirna Schroeder Electronically Approved: 07/16/2018 10:01:55 EXAM: Myocardial Perfusion REST/STRESS Stress Test Type: Pharmacologic Imaging Protocol The imaging protocol used to acquire images was Rest Tc-99m/stress Tc-99m 1 day Rest Spect myocardial perfusion imaging was performed in supine position 45 minutes following the injection of 10.9 mCi of Tc-99 Myoview. At peak stress, the patient was injected intravenously with 30.9mCi of Tc-99 tetrofosmin after an infusion time of 0 minutes and 10 seconds. Gated Stress Spect was performed 65 minutes after intravenous Tc-99 Myoview injection. The images were gated to evaluate regional wall motion and calculate ventricular ejection fraction.Images were reconstructed using backfilter projection method in short horizontal and verticle long axis. Spect slices were generated. LV Perfusion The quality of the study is good. The left ventricle is normal in size. The right ventricle is unremarkable. The lung uptake is normal. The distribution of tracer reveals mildly to moderately decreased perfusion involving distal anterior and apical ortiz on the stress study. The remainder of the LV myocardium is unremarkable. The rest myocardial perfusion study shows no significant change. Wall Motion Wall motion study shows good contractility of the left ventricle. LVEF = 71%. Conclusion 1. Essentially normal SPECT myocardial perfusion study. 2. Fixed, anteriorl and apical defects are most likely due to breast attenuation. 3. Normal gated wall motion of the left ventricle.
[2018-07-16] MEDS ORDERED: Albuterol-Ipratrop 3 mg / 0.5 (3 ml) UD IH PRN (19:33)
[2018-07-16] MEDS ORDERED: Albuterol-Ipratrop 3 mg / 0.5 (3 ml) UD IH SCH (19:45)
--- NOTE | 2018-07-16 23:54 | PN ---
DATE: 07/16/2018 SUBJECTIVE: The patient is a 62-year-old female. The patient was seen and examined at the bedside. Looking comfortable. No fever. No chills, but still coughing and shortness of breath. No headache today. She went for stress test. No nausea. No vomiting. No swelling of the legs. PHYSICAL EXAMINATION VITAL SIGNS: Blood pressure 123/80, pulse 73, respiratory rate 18, and temperature 98.6. HEENT: Head: Normocephalic, atraumatic. Eyes: PERRLA. Extraocular muscles intact. Conjunctivae clear. Nose patent. NECK: Supple. No carotid bruits, JVD or thyromegaly. CHEST: Bilaterally symmetrical. HEART: S1 and S2 positive. LUNGS: Scattered rhonchi bilaterally. ABDOMEN: Soft. Bowel sounds positive. No organomegaly. EXTREMITIES: No bilateral edema. No cyanosis. NEUROLOGIC: The patient is awake and alert. Follows simple commands. MEDICATIONS: Fioricet, aspirin, Lipitor, Zithromax, dextrose, doxycycline, Lovenox, insulin, Cozaar, metformin, Protonix, and prednisone. LABORATORY DATA: White blood cells 5.8, hemoglobin 11.3, hematocrit 33.9, and platelets 214. Sodium 137, potassium 4.3, BUN 24, creatinine 0.8, random glucose 191, hemoglobin A1c 7. AST 29, ALT 30. ASSESSMENT AND PLAN: Ms. Jes Curtis is a 62-year-old lady with multiple medical problems, came with chest pain, bronchitis, with sinusitis, viral syndrome, diabetes mellitus, hypertension, and sleep apnea syndrome. Continue steroid and antibiotics. Dr. Suarez added Tessalon Perles and Singulair. The patient went for stress test. Gastric and deep venous thrombosis prophylaxis. Sleep apnea precaution. Elevated head at 45 degree. Stress test is reviewed by me , normal as per Dr. Leif Sunshine, essentially normal SPECT myocardial perfusion study, fixed anterior and apical defects are most likely due to breast attenuation, normal gated wall motion of the left ventricle. Appreciated Dr. Suarez and Dr. Schroeder's input. Repeat labs. We will follow up. Ludivina Hammond MD [facility]
[2018-07-17] MEDS: Albuterol-Ipratrop 3 mg / 0.5 (3 ml) UD IH SCH ×3 (02:08→13:42)
[2018-07-17] MEDS ORDERED: Albuterol-Ipratrop 3 mg / 0.5 (3 ml) UD IH PRN (04:59)
[2018-07-17] MEDS: guaiFENesin-DM 600-30 mg ER Tab PO SCH ×2 (05:12→09:28)
[2018-07-17] MEDS: Pantoprazole 40 mg EC Tab PO SCH (05:12)
--- NOTE | 2018-07-17 06:46 | CP.PCM.PN ---
Subjective - Date & Time of Evaluation Date of Evaluation: 07/17/18 Time of Evaluation: 06:40 - Subjective Subjective: Lying in bed, no distress, denies shortness of breath Reason for consultation and follow up: Cardiac evaluation of shortness of breat h, chest discomfort from coughing, colds and coughing for the past 2 weeks Seen and examined by me and Dr. Schroeder Objective - Vital Signs/Intake and Output Vital Signs (last 24 hours): Temp Pulse Resp BP Pulse Ox 97.9 F 60 18 197/96 H 97 07/16/18 18:00 07/16/18 20:09 07/16/18 18:00 07/16/18 18:00 07/16/18 05:59 Intake and Output: 07/16/18 07/17/18 18:59 06:59 Intake Total 240 Balance 240 - Medications Medications: Current Medications Acetaminophen/Butalbital/Caffeine (Fioricet) 1 tab PO TID [facility] Last Admin: 07/16/18 17:37 Dose: 1 tab Albuterol/Ipratropium (Duoneb 3 Mg/0.5 Mg (3 Ml) Ud) 3 ml IH [id number] [facility] Last Admin: 07/17/18 02:08 Dose: 3 ml Albuterol/Ipratropium (Duoneb 3 Mg/0.5 Mg (3 Ml) Ud) 3 ml IH Q2H PRN PRN Reason: Shortness of Breath Last Admin: 07/17/18 05:13 Dose: 3 ml Aspirin (Ecotrin) 81 mg PO DAILY [facility] Last Admin: 07/16/18 12:32 Dose: 81 mg Atorvastatin Calcium (Lipitor) 20 mg PO DIN [facility] Last Admin: 07/16/18 17:38 Dose: 20 mg Azithromycin (Zithromax) 250 mg PO DAILY [facility]; Protocol Stop: 07/18/18 23:59 Last Admin: 07/16/18 12:32 Dose: 250 mg Benzonatate (Tessalon Perles) 100 mg PO TID [facility] Last Admin: 07/16/18 17:38 Dose: 100 mg Budesonide (Pulmicort Respules) 1 mg IH [id number] [facility] Dextrose (Dextrose 50% Inj) 0 ml IV STAT PRN; Protocol PRN Reason: Hypoglycemia Protocol Doxycycline Hyclate (Doryx) 100 mg PO Q12 [facility]; Protocol Last Admin: 07/16/18 21:48 Dose: 100 mg Enoxaparin Sodium (Lovenox) 40 mg SC DAILY [facility]; Protocol Last Admin: 07/16/18 12:31 Dose: 40 mg Fluticasone Propionate (Flonase) 1 actuation NS DAILY [facility] Guaifenesin/Dextromethorphan (Mucinex-Dm 600-30 Mg) 1 tab PO BID [facility] Last Admin: 07/17/18 05:12 Dose: 1 tab Dextrose (Dextrose 5% In Water 1000 Ml) 1,000 mls @ 0 mls/hr IV .Q0M PRN; Protocol PRN Reason: Hypoglycemia Protocol Insulin Human Regular (Humulin R) 0 units SC [facility]; Protocol Last Admin: 07/16/18 22:44 Dose: Not Given Loratadine (Claritin) 10 mg PO DAILY [facility] Losartan Potassium (Cozaar) 50 mg PO DAILY [facility] Last Admin: 07/16/18 12:32 Dose: 50 mg Metformin HCl (Glucophage) 500 mg PO BID [facility] Last Admin: 07/16/18 17:38 Dose: 500 mg Montelukast Sodium (Singulair) 10 mg PO HS [facility] Last Admin: 07/16/18 21:48 Dose: 10 mg Pantoprazole Sodium (Protonix Ec Tab) 40 mg PO 0600 [facility] Last Admin: 07/17/18 05:12 Dose: 40 mg Prednisone (Prednisone Tab) 20 mg PO DAILY [facility] Last Admin: 07/16/18 12:32 Dose: 20 mg - Labs Labs: 07/16/18 06:00 07/16/18 06:00 - Constitutional Appears: Non-toxic, No Acute Distress - Head Exam Head Exam: NORMAL INSPECTION, NORMOCEPHALIC - Eye Exam Eye Exam: Normal appearance Pupil Exam: NORMAL ACCOMODATION - ENT Exam ENT Exam: Mucous Membranes Moist, Normal Exam - Respiratory Exam Respiratory Exam: Decreased Breath Sounds, Clear to Ausculation Bilateral, NORM AL BREATHING PATTERN - Cardiovascular Exam Cardiovascular Exam: +S1, +S2 - GI/Abdominal Exam GI & Abdominal Exam: Soft, Normal Bowel Sounds - Extremities Exam Extremities Exam: Full ROM, Normal Capillary Refill - Neurological Exam Neurological Exam: Alert, Awake, Oriented x3 - Psychiatric Exam Psychiatric exam: Normal Affect, Normal Mood - Skin Skin Exam: Dry, Normal Color, Warm Assessment and Plan - Assessment and Plan (Free Text) Assessment: A 62 year old female who came in to the ER due to runny nose and coughing x 2 weeks associated with productive coughing and chest pain with occasional shortness of breath. History of hypertension, hyperlipidemia, diabetes. Chest X ray showed no vascular congestion. CT of chest unremarkable result. One troponin 0.03 but otherwise normal. Echo and stress test done. Echo done- Normal chamber, LVEF 55-60%, Moderate MR,eccentric jet, Mild TR,RVSP 29 mmHg no pericardial effusion,no thrombus or vegetation. Stress test done- Normal myocardial perfusion study, LVEF 71 %. Bronchitis. Pulmonary on consult. Cardiac status stable. Plan: Echo done- Normal chamber, LVEF 55-60% Moderate MR,eccentric jet, Mild TR,RVSP 29 mmHg no pericardial effusion,no thrombus or vegetation Stress test done- Normal myocardial perfusion study, LVEF 71 % Denies chest pain, no distress Heart rate controlled Blood pressure controlled Cardiac status stable On ASA 81 mg daily, Lovenox 40 mg daily,Cozaar 50 mg daily Prednisone 20 mg daily, Doryx 100 mg BID, Zithromax 250 mg dailly Continue antibiotics as ordered Continue current treatment Continue current medications Will follow up Plan and treatment discussed with Dr. Schroeder
[2018-07-17] MEDS ORDERED: Budesonide 0.5 mg/2 ml Inhal Susp UD IH SCH (08:00)
[2018-07-17] MEDS ORDERED: Arformoterol 15 mcg/2 ml Inh Sol IH SCH (08:00)
[2018-07-17] MEDS: Insulin Regular 1 UNITS/0.01 ML ML SC SCH ×2 (08:31→13:06)
[2018-07-17 08:45] VITALS: BP 174/85; PULSE 72; RESP 20; TEMP 98.1; O2SAT 100
[2018-07-17] MEDS: Enoxaparin 40 mg Syringe SC SCH (09:28)
[2018-07-17] MEDS: Apap-Butalbital-Caffeine 325-50-40mg Tab PO SCH ×2 (09:31→14:28)
[2018-07-17] MEDS ORDERED: Fluticasone Nasal 50 mcg/Spray NS SCH (10:00)
--- NOTE | 2018-07-17 12:54 | RAD ---
Date of service: 07/17/2018 HISTORY: F/U pneumonia and compare COMPARISON: 07/14/2018 TECHNIQUE: Chest PA and lateral FINDINGS: LUNGS: No active pulmonary disease. PLEURA: No significant pleural effusion identified. No pneumothorax apparent. CARDIOVASCULAR: No aortic atherosclerotic calcification present. Normal cardiac size. No pulmonary vascular congestion. OSSEOUS STRUCTURES: No significant abnormalities. VISUALIZED UPPER ABDOMEN: Normal. OTHER FINDINGS: None. IMPRESSION: No active disease.
--- NOTE | 2018-07-17 13:24 | PN ---
DATE: 07/17/2018 REFERRING PHYSICIAN: Ludivina Hammond MD. SUBJECTIVE: This patient is sitting up at bedside in no acute distress. No overnight events reported. The patient reports bad cough with productive sputum, runny nose, nasal congestion. No headache, shortness of breath, chest pain, abdominal pain, nausea, vomiting, diarrhea, leg pain, leg swelling reported. PHYSICAL EXAMINATION: GENERAL: In no acute distress. VITAL SIGNS: Blood pressure 174/85, pulse 72, temp 98.1, oxygen saturation 100%. HEENT: Moist mucous membranes. Crowded airway. Mallampati score of 4. Positive maxillary sinus tenderness bilaterally. NECK: Supple. No JVD. LUNGS: Clear bilaterally. No audible wheezing. CARDIOVASCULAR: S1, S2, audible. ABDOMEN: Soft, nontender. No distention. No organomegaly. EXTREMITIES: No bilateral lower extremity edema. NEUROLOGIC: Awake, alert and verbal. Follows simple commands. MEDICATIONS: Reviewed. Fioricet one tab p.o. three times a day, DuoNeb 3 mL inhalation every 6 hours, DuoNeb 3 mL inhalation every 2 hours p.r.n., aspirin 31 mg daily, Lipitor 20 mg daily, Zithromax 250 mg daily, Tessalon Perles 100 mg three times a day, Pulmicort 1 mg inhalation every 12 hours, dextrose 1000 mL p.r.n., doxycycline 100 mg every 12 hours, Lovenox 40 mg daily, Flonase 1 spray each nostril daily, Mucinex 1 tab p.o. twice a day, Humulin R sliding scale, Claritin 10 mg daily, Cozaar 50 mg daily, metformin 500 mg twice a day, Singulair 10 mg, Protonix 40 mg daily, prednisone 20 mg daily. LABORATORY DATA: Reviewed. No new labs since yesterday. DIAGNOSTIC DATA: Echocardiogram shows normal chamber size, ejection fraction 55% to 60%. Mitral regurgitation is moderate, mild tricuspid regurgitation, RVSP 29. No pericardial effusion. No thrombus or vegetation. IVC is normal in size. Collapse is greater than 50% with inspiration. Myocardial stress test shows essentially normal SPECT myocardial perfusion study, normal gated wall motion of left ventricle, fixed anterior and apical defects most likely due to breast attenuation. ASSESSMENT AND PLAN: Sinusitis, may have some component of bronchitis; diabetes, hypertension, suspected sleep apnea syndrome. Continue antibiotic therapy. We will increase prednisone to 40 mg daily. Continue Tessalon Perles, Singulair, gastric prophylaxis, deep venous thrombosis prophylaxis. Continue inhaled bronchodilators, mucolytics. Sleep apnea precaution. Head of bed elevated to 45 degrees. We recommend sleep study and full pulmonary function test as outpatient. This patient was seen and examined by Dr. Suarez. Discussed assessment and plan as described above. Thank you for this consult. We will follow with you. Albert Juarez APN Mirna Suarez MD
--- NOTE | 2018-07-17 13:53 | PN ---
DATE: 07/17/2018 REASON FOR CONSULTATION: Follow up; admitted for cardiac evaluation with shortness of breath, chest discomfort, cough, cold. This note is in addition to the dictated note by nurse practitioner, Jenifer Singh. The patient underwent yesterday a stress test that was negative. Echo shows ejection fraction of about 96% and moderate and mild concentric , mild TR, RVSP 29. No pericardial effusion. The stress test negative with ejection fraction 71%, most likely symptoms is secondary to bronchitis. RECOMMENDATION: Continue baby aspirin. Continue DVT prophylaxis. Continue Cozaar. The patient started on Zithromax as per Pulmonary. We will discontinue telemetry. Previous status stable. No further cardiac workup is planned or warranted. Continue Pulmonary followup. We will repeat chest x-ray, PA and lateral, to rule out any infiltrate that with later grow. The patient is still complaining of cough. Thank you Dr. Hammond for providing this opportunity in taking care of the patient, Jes Curtis. Mirna Schroeder MD
== END 2018-07-17 16:01 | disposition home or self-care (01) ==
LOC: ED 19:19 → ERH 23:24 → 2RNO 07-15 00:40 → OBSVTOIN 07-16 19:11 → INTOOBSV 07-16 19:11 → 3RSO 07-16 23:37
PROVIDERS: ADMIT Internal Medicine; ATTEND Internal Medicine
DX: J40 Bronchitis, not specified as acute or chronic (principal); R07.89 Other chest pain; E87.2 Acidosis; I10 Essential (primary) hypertension; E78.00 Pure hypercholesterolemia, unspecified; E11.9 Type 2 diabetes mellitus without complications; E83.42 Hypomagnesemia; J31.0 Chronic rhinitis; E78.5 Hyperlipidemia, unspecified; G47.30 Sleep apnea, unspecified
CPT/HCPCS: 36415; 71046; 71275; 78452; 80053; 80061; 82550; 82803; 82948; 83036; 83615; 83735; 83880; 84100; 84443; 84484; 85025; 87804; 93005; 93017; 93306; 94640; 96374; 99285; A9502; G0378; J0280; J1650; J2785; J2930; Q9967